=== PATIENT | male | born 1965 ===

== ENCOUNTER 2019-07-01 20:30 | Outpatient (CLI) | payer MEDICARE, MEDICAID | END 2019-07-01 20:31 | disposition home or self-care (01) | LOC: SLEEPLAB 20:30 | PROVIDERS: ATTEND Internal Medicine Critical Care Medicine | DX: G47.33 Obstructive sleep apnea (adult) (pediatric) (principal); E66.9 Obesity, unspecified; G47.31 Primary central sleep apnea | CPT/HCPCS: 95811 ==

== ENCOUNTER 2019-08-22 20:30 | Outpatient (CLI) | payer MEDICARE, MEDICAID | END 2019-08-22 20:31 | disposition home or self-care (01) | LOC: SLEEPLAB 20:30 | PROVIDERS: ATTEND Internal Medicine Critical Care Medicine | DX: G47.33 Obstructive sleep apnea (adult) (pediatric) (principal); K21.9 Gastro-esophageal reflux disease without esophagitis; G47.31 Primary central sleep apnea | CPT/HCPCS: 95811 ==